=== PATIENT | female | born 1960 | race African-American/Black ===

== ENCOUNTER 2017-03-05 08:28 | Day surgery (SDC) | payer OTHER, MEDICAID ==
[2017-03-05] MEDS ORDERED: NS 1000 ML 1,000 ML ONE (08:29)
[2017-03-05] MEDS ORDERED: DIPRIVAN VIAL 20 ML ONE (10:16)
[2017-03-05 10:56] VITALS: BP 141/72
== END 2017-03-05 10:55 | disposition home or self-care (01) ==
LOC: SURG1 08:28
PROVIDERS: ATTEND Internal Medicine Gastroenterology
PROC: 0DJ08ZZ Inspection of Upper Intestinal Tract, Via Natural or Artificial Opening Endoscopic (ICD-10-PCS; principal; 2017-03-05 09:45)
PROC: 0DB68ZX Excision of Stomach, Via Natural or Artificial Opening Endoscopic, Diagnostic (ICD-10-PCS; principal; 2017-03-05 09:45)
PROC: 0DB88ZX Excision of Small Intestine, Via Natural or Artificial Opening Endoscopic, Diagnostic (ICD-10-PCS; principal; 2017-03-05 09:45)
DX: R11.2 Nausea with vomiting, unspecified (principal); R10.13 Epigastric pain; Z87.19 Personal history of other diseases of the digestive system; K20.8 Other esophagitis; K44.9 Diaphragmatic hernia without obstruction or gangrene; K21.9 Gastro-esophageal reflux disease without esophagitis
CPT/HCPCS: A4217; J3490